=== PATIENT | female | born 1980 | race Caucasian/White ===

== ENCOUNTER → 2016-07-15 | Outpatient (CLI) | payer BC ==
[~2016-07-15] MED LIST: ASPIRIN 81M81 MG/TA2 PO; DOXYCYCLINE 10100 MG PO; FERROUS SU325 MG/TAB PO; FLAGYL500 MG PO; FOLIC ACID 11 MG/TA1 PO; IBU800 M1 PO; METHERGINE0.2 MG/TAB PO; MOTRIN 600600 MG/TAB PO; MOTRIN 800800 MG/TAB PO; PERCOCET 325 MG1 TA2 PO; PRENATAL1 TA1 PO; ZYRTEC 10MG10 MG PO
== END ==
LOC: COL.RAD 07-09 09:45
DX: E05.90 Thyrotoxicosis, unspecified without thyrotoxic crisis or storm (principal)
CPT/HCPCS: A9516

== ENCOUNTER 2016-11-05 05:30 | Day surgery (SDC) | payer BC ==
[~2016-11-05] VITALS: Ht 175.3 cm; Wt 110.8 kg
[2016-11-05] VITALS (15 sets, daily range): BP systolic 100–142; BP diastolic 50–88; PULSE 77–96; TEMP 98.6
[~2016-11-05 05:30] MED LIST changes: -ASPIRIN 81M81 MG/TA2 PO; -DOXYCYCLINE 10100 MG PO; -FLAGYL500 MG PO; -IBU800 M1 PO; -METHERGINE0.2 MG/TAB PO; -ZYRTEC 10MG10 MG PO
[2016-11-05] MEDS ORDERED: ASPIRIN 81M81 MG/TA2 PO (06:18)
[2016-11-05] MEDS ORDERED: ZYRTEC 10MG10 MG PO (06:18)
[2016-11-05] MEDS ORDERED: IBU800 M1 PO (09:31)
[2016-11-05] MEDS ORDERED: PERCOCET 325 MG1 TA2 PO (09:31)
[2016-11-05] MEDS ORDERED: METHERGINE0.2 MG/TAB PO (09:32)
[2016-11-05] MEDS ORDERED: FLAGYL500 MG PO (09:33)
[2016-11-05] MEDS ORDERED: DOXYCYCLINE 10100 MG PO (09:33)
[2016-11-05 10:12] LABS: MEAN CELL VOLUME 82 fl (80.0-100.0); MEAN CORPUSCULAR HGB CONC 33 g/dl (33.0-37.0); MEAN PLATELET VOLUME 10.4 fl (7.4-10.4); PLATELET COUNT 204 K/mm3 (130-400); RED BLOOD COUNT 4.14 M/mm3 (4.10-5.30); REDCELL DISTRIBUTION WIDTH-CV 14.1 % (11.5-14.5)
[2016-11-05 10:22] LABS: HEMATOCRIT 34.1 % (37.0-47.0); HEMOGLOBIN 11.1 g/dl (12.5-16.0); MEAN CORPUSCULAR HEMOGLOBIN 27 pg (27.0-31.0)
[2016-11-05 10:26] LABS: ADJUSTED CALCIUM 8.7 mg/dL (8.4-10.2); ALBUMIN 3.3 gm/dL (3.5-5.0); BILIRUBIN,TOTAL 0.3 mg/dL (0.0-1.0); CALCIUM 8.1 mg/dL (8.4-10.2); CREATININE, serum 0.57 mg/dL (0.52-1.25); TOTAL PROTEIN 6.6 gm/dL (6.4-8.2)
[2016-11-07 21:12] LABS: BETA-2 GPI IGG AABS <9.4 U/mL (()); BETA-2 GPI IGM AABS <9.4 U/mL (())
== END 2016-11-05 16:10 | disposition home or self-care (01) ==
LOC: SDCO 05:30
PROVIDERS: Student in an Organized Health Care Education/Training Program
DX: O02.1 Missed abortion (principal); O99.282 Endocrine, nutritional and metabolic diseases complicating pregnancy, second trimester; E02 Subclinical iodine-deficiency hypothyroidism; O22.22 Superficial thrombophlebitis in pregnancy, second trimester; O23.592 Infection of other part of genital tract in pregnancy, second trimester; O99.212 Obesity complicating pregnancy, second trimester; Z3A.16 16 weeks gestation of pregnancy; Z83.49 Family history of other endocrine, nutritional and metabolic diseases
CPT/HCPCS: J2210; J2405; J2590; J2704; J3010; J7120

== ENCOUNTER → 2016-11-12 | Outpatient (CLI) | payer BC ==
[~2016-11-12] MED LIST changes: +ASPIRIN 81M81 MG/TA2 PO; +DOXYCYCLINE 10100 MG PO; +FLAGYL500 MG PO; +IBU800 M1 PO; +METHERGINE0.2 MG/TAB PO; +ZYRTEC 10MG10 MG PO
== END ==
LOC: COL.RAD 10:08
DX: M79.662 Pain in left lower leg (principal); I82.442 Acute embolism and thrombosis of left tibial vein

== ENCOUNTER → 2016-12-23 | Outpatient (CLI) | payer BC | LOC: COL.VAS 10:45 | DX: I82.542 Chronic embolism and thrombosis of left tibial vein (principal) ==

== ENCOUNTER → 2017-03-04 | Outpatient (CLI) | payer BC | LOC: COL.VAS 15:29 | DX: I82.542 Chronic embolism and thrombosis of left tibial vein (principal); R60.0 Localized edema ==